=== PATIENT | female | born 1935 | race Caucasian/White ===

== ENCOUNTER 2024-01-25 08:21 | Inpatient (IN) ==
[2024-01-25] MEDS ORDERED: IOPAMIDOL 100 ML BOTTLE IV ONE (08:22)
[2024-01-25] MEDS: IPRATROPIUM/ALBUTEROL 3 ML AMPUL.NEB NEB ONE (08:52)
[2024-01-25] MEDS: methylPREDNISolone SOD SUCC 125 MG/2 ML VIAL IV ONE (08:56)
[2024-01-25 09:50] LABS: ALT/SGPT < 5 U/L (<40); AST/SGOT 33 U/L (<32); Albumin 3.7 gm/dL (3.2-5.2); Albumin/Globulin Ratio 1.1 (1.0-2.3); Alkaline Phosphatase 81 U/L (39-117); Bilirubin,Total 0.4 mg/dL (0.1-1.0); Blood Urea Nitrogen 20 mg/dL (8-23); Calcium 9.2 mg/dL (8.6-10.4); Carbon Dioxide 29 mmol/L (22-30); Chloride 99 mmol/L (96-108); Globulin 3.5 gm/dL (2.2-3.7); Glomerular Filtration Rate 81; Glucose 97 mg/dL (70-105)
[2024-01-25] MEDS: OSELTAMIVIR PHOSPHATE 75 MG CAPSULE PO ONE (10:58)
[2024-01-25 12:04] LABS: Basophils # (Auto) 0.05 K/mcL (0.00-0.30); Basophils % (Auto) 0.9 % (0.0-2.0); Eosinophils % (Auto) 1.7 % (0.0-7.0); Hematocrit 37.7 % (34.1-44.9); Hemoglobin 11.3 g/dL (11.2-15.7); Lymphocytes # (Auto) 1.54 K/mcL (1.50-4.80); Lymphocytes % (Auto) 26.5 % (15.5-49.0); Mean Cell Volume 94.7 fL (80.0-100.0); Monocytes # (Auto) 1.79 K/mcL (0.10-0.90); Monocytes % (Auto) 30.8 % (1.0-12.0); Neutrophils % (Auto) 39.1 % (38.0-78.0); Platelet Count 138 K/mcL (140-440); RBC 3.98 M/mcL (3.59-5.38); Red Cell Distribution Width 21.6 % (11.5-14.5); WBC 5.8 K/mcL (4.5-11.0)
[2024-01-25] MEDS: AZITHROMYCIN 250 MG TABLET PO ONE (12:24)
[2024-01-25] MEDS: cefTRIAXone 1 GM VIAL IV ONE (12:24)
[2024-01-25] MEDS ORDERED: ALBUTEROL SULFATE 60 PUFF INHALER INH PRN (14:01)
[2024-01-25] MEDS: IPRATROPIUM/ALBUTEROL 3 ML AMPUL.NEB NEB SCH (14:35)
[2024-01-25] MEDS: OSELTAMIVIR PHOSPHATE 30 MG CAPSULE PO SCH (14:47)
[2024-01-25] MEDS: predniSONE 20 MG TABLET PO SCH (14:51)
[2024-01-25] MEDS: NICOTINE 21 MG PATCH TOPICAL SCH (14:51)
[2024-01-25] MEDS: 0.9 % SODIUM CHLORIDE 10 ML SYRINGE IV SCH (14:51)
[2024-01-25] MEDS: HYDROCODONE/APAP 7.5/325MG TABLET PO PRN (18:43)
[2024-01-25] MEDS: DOCUSATE SODIUM 100 MG CAPSULE PO SCH (20:33)
[2024-01-25] MEDS: SENNOSIDES/DOCUSATE SODIUM 1 TAB TABLET PO SCH (20:33)
[2024-01-25] MEDS: traZODone HCL 50 MG TABLET PO PRN (20:35)
[2024-01-25] MEDS: MIRTAZAPINE 15 MG TABLET PO SCH (20:39)
[2024-01-25] MEDS ORDERED: SENNOSIDES 1 TABLET PO SCH (21:00)
[2024-01-25] MEDS: LORazepam 0.5 MG TABLET PO PRN (23:21)
[2024-01-26] MEDS: ONDANSETRON 4 MG/2 ML VIAL IV PRN (06:45)
[2024-01-26] MEDS: POTASSIUM CHLORIDE 10 MEQ TABLET PO SCH ×2 (07:21→20:21)
[2024-01-26 07:41] LABS: Basophils # (Auto) 0.01 K/mcL (0.00-0.30); Basophils % (Auto) 0.2 % (0.0-2.0); Eosinophils # (Auto) 0 K/mcL (0.00-0.70); Eosinophils % (Auto) 0 % (0.0-7.0); Hematocrit 34.8 % (34.1-44.9); Hemoglobin 10.4 g/dL (11.2-15.7); Lymphocytes # (Auto) 1.28 K/mcL (1.50-4.80); Lymphocytes % (Auto) 31.5 % (15.5-49.0); Mean Cell Volume 95.6 fL (80.0-100.0); Mean Corpuscular HGB Conc 29.9 g/dL (31.0-36.0); Monocytes # (Auto) 1.34 K/mcL (0.10-0.90); Neutrophils % (Auto) 33.6 % (38.0-78.0); Platelet Count 132 K/mcL (140-440); RBC 3.64 M/mcL (3.59-5.38); Red Cell Distribution Width 21.5 % (11.5-14.5); WBC 4.1 K/mcL (4.5-11.0)
[2024-01-26 07:46] LABS: ALT/SGPT < 5 U/L (<40); AST/SGOT 29 U/L (<32); Albumin 3.6 gm/dL (3.2-5.2); Albumin/Globulin Ratio 1.2 (1.0-2.3); Alkaline Phosphatase 68 U/L (39-117); Bilirubin,Total 0.3 mg/dL (0.1-1.0); Blood Urea Nitrogen 19 mg/dL (8-23); Calcium 9.3 mg/dL (8.6-10.4); Carbon Dioxide 30 mmol/L (22-30); Chloride 100 mmol/L (96-108); Globulin 3.1 gm/dL (2.2-3.7); Glomerular Filtration Rate 81; Glucose 81 mg/dL (70-105)
[2024-01-26] MEDS ORDERED: [UNRECOGNIZED DRUG - OTHER] PO SCH (09:00)
[2024-01-26] MEDS ORDERED: IRON CARBONYL 15 MG PO SCH (09:00)
[2024-01-26] MEDS: ASPIRIN 81 MG TAB.CHEW PO SCH (09:10)
[2024-01-26] MEDS: ENOXAPARIN 30 MG/0.3 ML SYRINGE SQ SCH (09:10)
[2024-01-26] MEDS: amLODIPine 5 MG TABLET PO SCH (09:10)
[2024-01-26] MEDS: HYDROCHLOROTHIAZIDE 25 MG TABLET PO SCH (09:10)
[2024-01-26] MEDS: AZITHROMYCIN 500 MG in DEXTROSE 5% IN WATER 250 ML IV SCH (09:20)
[2024-01-26] MEDS: cefTRIAXone 1 GM VIAL IV SCH (09:20)
[2024-01-27 06:09] LABS: ALT/SGPT < 5 U/L (<40); AST/SGOT 34 U/L (<32); Albumin 3.9 gm/dL (3.2-5.2); Albumin/Globulin Ratio 1.1 (1.0-2.3); Alkaline Phosphatase 78 U/L (39-117); Bilirubin,Total 0.3 mg/dL (0.1-1.0); Blood Urea Nitrogen 19 mg/dL (8-23); Calcium 9.7 mg/dL (8.6-10.4); Carbon Dioxide 31 mmol/L (22-30); Chloride 101 mmol/L (96-108); Globulin 3.4 gm/dL (2.2-3.7); Glomerular Filtration Rate 81; Glucose 65 mg/dL (70-105)
[2024-01-27 07:49] LABS: Basophils # (Auto) 0.01 K/mcL (0.00-0.30); Basophils % (Auto) 0.2 % (0.0-2.0); Eosinophils # (Auto) 0.01 K/mcL (0.00-0.70); Eosinophils % (Auto) 0.2 % (0.0-7.0); Hematocrit 38.7 % (34.1-44.9); Hemoglobin 11.7 g/dL (11.2-15.7); Lymphocytes # (Auto) 1.79 K/mcL (1.50-4.80); Lymphocytes % (Auto) 30.1 % (15.5-49.0); Mean Cell Volume 95.3 fL (80.0-100.0); Mean Corpuscular HGB Conc 30.2 g/dL (31.0-36.0); Monocytes # (Auto) 1.41 K/mcL (0.10-0.90); Monocytes % (Auto) 23.7 % (1.0-12.0); Neutrophils % (Auto) 44.6 % (38.0-78.0); Platelet Count 168 K/mcL (140-440); RBC 4.06 M/mcL (3.59-5.38); Red Cell Distribution Width 21.8 % (11.5-14.5)
[2024-01-27] MEDS: guaiFENesin/DEXTROMETHORPHAN 5ML UD CUP PO PRN (08:21)
[2024-01-27] MEDS: IPRATROPIUM/ALBUTEROL 3 ML AMPUL.NEB NEB SCH (08:49)
[2024-01-27] MEDS: LIDOCAINE 4% TOP PATCH TOPICAL SCH (11:01)
[2024-01-27] MEDS: POLYETHYLENE GLYCOL 3350 17 GM PACKET PO PRN (11:01)
[2024-01-27] MEDS: ACETAMINOPHEN 325 MG TABLET PO PRN (12:53)
[2024-01-28 09:19] LABS: ALT/SGPT < 5 U/L (<40); AST/SGOT 34 U/L (<32); Albumin 3.8 gm/dL (3.2-5.2); Albumin/Globulin Ratio 1.3 (1.0-2.3); Alkaline Phosphatase 74 U/L (39-117); Bilirubin,Total 0.2 mg/dL (0.1-1.0); Blood Urea Nitrogen 17 mg/dL (8-23); Calcium 9.3 mg/dL (8.6-10.4); Carbon Dioxide 31 mmol/L (22-30); Chloride 103 mmol/L (96-108); Globulin 2.9 gm/dL (2.2-3.7); Glomerular Filtration Rate 81; Glucose 90 mg/dL (70-105)
[2024-01-28 09:27] LABS: Basophils # (Auto) 0.02 K/mcL (0.00-0.30); Basophils % (Auto) 0.3 % (0.0-2.0); Eosinophils # (Auto) 0.02 K/mcL (0.00-0.70); Eosinophils % (Auto) 0.3 % (0.0-7.0); Hematocrit 37.2 % (34.1-44.9); Lymphocytes # (Auto) 1.89 K/mcL (1.50-4.80); Lymphocytes % (Auto) 23.9 % (15.5-49.0); Mean Cell Volume 96.6 fL (80.0-100.0); Mean Corpuscular HGB Conc 29.6 g/dL (31.0-36.0); Monocytes # (Auto) 1.42 K/mcL (0.10-0.90); Platelet Count 182 K/mcL (140-440); RBC 3.85 M/mcL (3.59-5.38); WBC 7.9 K/mcL (4.5-11.0)
[2024-01-29 07:05] LABS: Basophils # (Auto) 0.04 K/mcL (0.00-0.30); Basophils % (Auto) 0.5 % (0.0-2.0); Eosinophils # (Auto) 0.04 K/mcL (0.00-0.70); Eosinophils % (Auto) 0.5 % (0.0-7.0); Hematocrit 36.9 % (34.1-44.9); Hemoglobin 10.7 g/dL (11.2-15.7); Lymphocytes # (Auto) 2.19 K/mcL (1.50-4.80); Lymphocytes % (Auto) 28.5 % (15.5-49.0); Mean Cell Volume 100.5 fL (80.0-100.0); Monocytes # (Auto) 1.34 K/mcL (0.10-0.90); Monocytes % (Auto) 17.4 % (1.0-12.0); Neutrophils % (Auto) 51.3 % (38.0-78.0); Platelet Count 175 K/mcL (140-440); RBC 3.67 M/mcL (3.59-5.38); Red Cell Distribution Width 21.7 % (11.5-14.5); WBC 7.7 K/mcL (4.5-11.0)
[2024-01-29 07:30] LABS: ALT/SGPT < 5 U/L (<40); AST/SGOT 29 U/L (<32); Albumin 3.8 gm/dL (3.2-5.2); Albumin/Globulin Ratio 1.4 (1.0-2.3); Alkaline Phosphatase 71 U/L (39-117); Bilirubin,Total < 0.2 mg/dL (0.1-1.0); Blood Urea Nitrogen 21 mg/dL (8-23); Calcium 9.4 mg/dL (8.6-10.4); Carbon Dioxide 31 mmol/L (22-30); Chloride 105 mmol/L (96-108); Globulin 2.8 gm/dL (2.2-3.7); Glomerular Filtration Rate 86; Glucose 80 mg/dL (70-105)
[2024-01-30 07:55] LABS: Basophils # (Auto) 0.04 K/mcL (0.00-0.30); Basophils % (Auto) 0.5 % (0.0-2.0); Eosinophils # (Auto) 0.03 K/mcL (0.00-0.70); Eosinophils % (Auto) 0.4 % (0.0-7.0); Hematocrit 37.6 % (34.1-44.9); Hemoglobin 11.1 g/dL (11.2-15.7); Lymphocytes # (Auto) 2.24 K/mcL (1.50-4.80); Lymphocytes % (Auto) 26.9 % (15.5-49.0); Mean Cell Volume 98.9 fL (80.0-100.0); Mean Corpuscular HGB Conc 29.5 g/dL (31.0-36.0); Monocytes # (Auto) 1.43 K/mcL (0.10-0.90); Monocytes % (Auto) 17.1 % (1.0-12.0); Neutrophils % (Auto) 53.1 % (38.0-78.0); Platelet Count 207 K/mcL (140-440); WBC 8.3 K/mcL (4.5-11.0)
[2024-01-30 08:13] LABS: ALT/SGPT < 5 U/L (<40); AST/SGOT 29 U/L (<32); Albumin/Globulin Ratio 1.3 (1.0-2.3); Alkaline Phosphatase 83 U/L (39-117); Bilirubin,Total < 0.2 mg/dL (0.1-1.0); Blood Urea Nitrogen 26 mg/dL (8-23); Calcium 9.8 mg/dL (8.6-10.4); Carbon Dioxide 29 mmol/L (22-30); Chloride 104 mmol/L (96-108); Glomerular Filtration Rate 86; Glucose 85 mg/dL (70-105)
[2024-01-31] MEDS: KETOROLAC 15 MG/ML VIAL IV PRN (04:49)
[2024-01-31 07:32] LABS: ALT/SGPT 6 U/L (<40); AST/SGOT 28 U/L (<32); Albumin 3.9 gm/dL (3.2-5.2); Albumin/Globulin Ratio 1.4 (1.0-2.3); Alkaline Phosphatase 78 U/L (39-117); Bilirubin,Total < 0.2 mg/dL (0.1-1.0); Blood Urea Nitrogen 28 mg/dL (8-23); Calcium 9.3 mg/dL (8.6-10.4); Carbon Dioxide 30 mmol/L (22-30); Chloride 103 mmol/L (96-108); Globulin 2.7 gm/dL (2.2-3.7); Glomerular Filtration Rate 81; Glucose 79 mg/dL (70-105)
[2024-01-31 07:47] LABS: Basophils # (Auto) 0.02 K/mcL (0.00-0.30); Basophils % (Auto) 0.3 % (0.0-2.0); Eosinophils # (Auto) 0.04 K/mcL (0.00-0.70); Eosinophils % (Auto) 0.5 % (0.0-7.0); Hemoglobin 10.1 g/dL (11.2-15.7); Lymphocytes # (Auto) 2.31 K/mcL (1.50-4.80); Lymphocytes % (Auto) 30.3 % (15.5-49.0); Mean Corpuscular HGB Conc 28.9 g/dL (31.0-36.0); Mean Platelet Volume 11.7 fL (8.8-12.5); Monocytes # (Auto) 1.24 K/mcL (0.10-0.90); Monocytes % (Auto) 16.3 % (1.0-12.0); Neutrophils % (Auto) 49.8 % (38.0-78.0); Platelet Count 181 K/mcL (140-440); Red Cell Distribution Width 22.8 % (11.5-14.5); WBC 7.6 K/mcL (4.5-11.0)
[2024-01-31] MEDS: hydrOXYzine 25 MG TABLET PO SCH (11:47)
[2024-01-31] MEDS: MELATONIN 3 MG TABLET PO ONE ×2 (22:20)
[2024-02-01 07:40] LABS: ALT/SGPT 10 U/L (<40); AST/SGOT 28 U/L (<32); Albumin 3.7 gm/dL (3.2-5.2); Albumin/Globulin Ratio 1.3 (1.0-2.3); Alkaline Phosphatase 78 U/L (39-117); Bilirubin,Total 0.2 mg/dL (0.1-1.0); Blood Urea Nitrogen 29 mg/dL (8-23); Calcium 9.2 mg/dL (8.6-10.4); Carbon Dioxide 29 mmol/L (22-30); Chloride 104 mmol/L (96-108); Globulin 2.8 gm/dL (2.2-3.7); Glomerular Filtration Rate 81; Glucose 75 mg/dL (70-105)
[2024-02-01 08:49] LABS: Basophils # (Auto) 0.01 K/mcL (0.00-0.30); Basophils % (Auto) 0.1 % (0.0-2.0); Eosinophils # (Auto) 0.04 K/mcL (0.00-0.70); Eosinophils % (Auto) 0.5 % (0.0-7.0); Lymphocytes # (Auto) 2.27 K/mcL (1.50-4.80); Lymphocytes % (Auto) 30.7 % (15.5-49.0); Mean Corpuscular HGB Conc 29.4 g/dL (31.0-36.0); Mean Platelet Volume 11.3 fL (8.8-12.5); Monocytes # (Auto) 1.23 K/mcL (0.10-0.90); Monocytes % (Auto) 16.6 % (1.0-12.0); Neutrophils % (Auto) 48.3 % (38.0-78.0); Platelet Count 189 K/mcL (140-440); RBC 3.47 M/mcL (3.59-5.38); Red Cell Distribution Width 22.5 % (11.5-14.5); WBC 7.4 K/mcL (4.5-11.0)
[2024-02-01 12:18] VITALS: TEMP 97.2; O2SAT 93
== END 2024-02-01 12:55 | DRG 190 ==
LOC: ED 08:21 → ICU 13:58 → MEDSUR 01-27 14:58
PROVIDERS: ADMIT Internal Medicine; ATTEND Student in an Organized Health Care Education/Training Program